=== PATIENT | female | born 1985 | race Caucasian/White ===

== ENCOUNTER 2019-03-05 09:17 | Emergency (ER) | payer OTHER ==
[~2019-03-05] VITALS: Ht 165.1 cm; Wt 59.0 kg
[~2019-03-05 09:17] MED LIST: ACETAMINOPHEN-1 EAC1 PO; AMOXIL 875 MG875 M1 PO; CIPRO500 MG PO; HYDROCODONE-AP1 EAC6 PO; NORCO 5-325 TA1 EACH PO; PRILOSEC 20 MG20 MG PO; ZOFRAN ODT4 MG PO
[2019-03-05 09:40] LABS: URINE BILIRUBIN NEGATIVE (Negative); URINE BLOOD 3+ (Negative); URINE CLARITY CLEAR; URINE COLOR YELLOW; URINE GLUCOSE-RANDOM NEGATIVE (Negative); URINE KETONES NEGATIVE (Negative); URINE LEUKOCYTES-REFLEX NEGATIVE (Negative); URINE NITRITE-REFLEX NEGATIVE (Negative); URINE PROTEIN NEGATIVE (Negative); URINE SPECIFIC GRAVITY >= 1.030 (1.005-1.030); URINE UROBILINOGEN 0.2 E.U./dl (0.2-1.0)
[2019-03-05 09:49] LABS: BACTERIA-REFLEX 1-9 Few /HPF (None Seen); CASTS None Seen /LPF (None Seen); CRYSTALS None Seen /LPF (None Seen); MUCUS None Seen strn/LPF (None Seen); SQUAMOUS 4-10 Moderate /LPF (0-3); URINE RBC 3-10 Few /HPF (0-2); URINE WBC-REFLEX 0-5 Rare /HPF (0-5)
[2019-03-05 10:02] VITALS: BP 114/74
== END 2019-03-05 10:03 | disposition home or self-care (01) ==
LOC: M.ERS 09:17
PROVIDERS: Family Medicine
DX: N97.9 Female infertility, unspecified (principal); F17.210 Nicotine dependence, cigarettes, uncomplicated; Z98.890 Other specified postprocedural states

== ENCOUNTER 2020-07-04 11:43 | Emergency (ER) | payer OTHER ==
[~2020-07-04] VITALS: Ht 152.4 cm; Wt 49.9 kg
[2020-07-04] MEDS ORDERED: ULTRAM 50MG TAB50 MG PO (12:59)
[2020-07-04 13:20] VITALS: BP 118/65
== END 2020-07-04 13:37 | disposition home or self-care (01) ==
LOC: M.ERS 11:43
DX: M21.612 Bunion of left foot (principal); F17.210 Nicotine dependence, cigarettes, uncomplicated; Z98.890 Other specified postprocedural states